=== PATIENT | male | born 1945 | race Caucasian/White ===

== ENCOUNTER 2016-03-27 13:19 | Outpatient (CLI) ==
[2013-02-23 12:55] VITALS: BMI 23.2
[2016-03-27 13:39] LABS: BASOPHILS % (AUTO) 0.6 % (0.0-3.0); EOSINOPHILS # (AUTO) 0.3 K/ul (0.0-0.7); EOSINOPHILS % (AUTO) 3.6 % (0.0-7.0); HEMATOCRIT 40.4 % (42.0-52.0); HEMOGLOBIN 13.8 g/dl (14.0-18.0); IMMATURE GRANULOCYTE % (AUTO) 0.3 % (0.0-5.0); LYMPHOCYTES # (AUTO) 2.4 K/uL (0.60-3.4); LYMPHOCYTES % (AUTO) 33.7 (10.0-50.0); MEAN CORPUSCULAR HEMOGLOBIN 31.4 pg (27.0-31.0); MEAN CORPUSCULAR HGB CONC 34.2 (31.8-35.4); MONOCYTES # (AUTO) 0.7 K/uL (0.4-2.0); MONOCYTES % (AUTO) 9.4 (0-10); NEUTROPHILS # (AUTO) 3.8 K/ul (2.0-6.9); NEUTROPHILS % (AUTO) 52.4; PLATELET COUNT 160 10^3/uL (140-440); RED BLOOD COUNT 4.39 10^6/ul (4.70-6.10); WHITE BLOOD COUNT 7.22 K/ul (4.2-10.2)
[2016-03-27 14:24] LABS: ALBUMIN 3.1 g/dL (3.4-5.0); ALBUMIN/GLOBULIN RATIO 0.79; ANION GAP 10.3; BILIRUBIN,TOTAL 1.34 mg/dL (0.00-1.20); BUN/CREATININE RATIO 15.85; CALCIUM 8.9 mg/dL (8.2-10.2); CHOL/HDL RATIO 3.3 (4.5-6.4); CREATININE 0.82 mg/dL (0.60-1.10); POTASSIUM 4.3 mmol/L (3.5-5.1)
[2016-03-29 07:51] LABS: PSA, FREE 1.04 ng/mL
== END 2016-03-27 13:20 | disposition home or self-care (01) ==
LOC: LAB 13:19
PROVIDERS: ATTEND Student in an Organized Health Care Education/Training Program
DX: I10 Essential (primary) hypertension (principal); I25.10 Atherosclerotic heart disease of native coronary artery without angina pectoris; Z86.73 Personal history of transient ischemic attack (TIA), and cerebral infarction without residual deficits; I73.9 Peripheral vascular disease, unspecified; Z85.46 Personal history of malignant neoplasm of prostate; C61 Malignant neoplasm of prostate
CPT/HCPCS: 36415; 80053; 80061; 84153; 84443; 85025

== ENCOUNTER 2016-08-02 12:29 | Outpatient (CLI) ==
[2013-02-23 12:55] VITALS: BMI 23.2
[2016-08-02 13:48] LABS: BASOPHILS % (AUTO) 0.5 % (0.0-3.0); EOSINOPHILS # (AUTO) 0.2 K/ul (0.0-0.7); EOSINOPHILS % (AUTO) 2.4 % (0.0-7.0); HEMATOCRIT 38.7 % (42.0-52.0); HEMOGLOBIN 13.2 g/dl (14.0-18.0); IMMATURE GRANULOCYTE % (AUTO) 0.1 % (0.0-5.0); LYMPHOCYTES # (AUTO) 2.3 K/uL (0.60-3.4); LYMPHOCYTES % (AUTO) 30.7 (10.0-50.0); MEAN CORPUSCULAR HEMOGLOBIN 31.1 pg (27.0-31.0); MEAN CORPUSCULAR HGB CONC 34.1 (31.8-35.4); MEAN CORPUSCULAR VOLUME 91.3 fl (80.0-94.0); MONOCYTES # (AUTO) 0.8 K/uL (0.4-2.0); MONOCYTES % (AUTO) 10.4 (0-10); NEUTROPHILS # (AUTO) 4.2 K/ul (2.0-6.9); NEUTROPHILS % (AUTO) 55.9; PLATELET COUNT 172 10^3/uL (140-440); RED BLOOD COUNT 4.24 10^6/ul (4.70-6.10); WHITE BLOOD COUNT 7.48 K/ul (4.2-10.2)
[2016-08-02 14:02] LABS: ALBUMIN 3.2 g/dL (3.4-5.0); ALBUMIN/GLOBULIN RATIO 0.86; ANION GAP 12.1; BILIRUBIN,TOTAL 1.22 mg/dL (0.00-1.20); BUN/CREATININE RATIO 7.79; CALCIUM 8.6 mg/dL (8.2-10.2); CHOL/HDL RATIO 2.4 (4.5-6.4); CREATININE 0.77 mg/dL (0.60-1.10); POTASSIUM 4.1 mmol/L (3.5-5.1); TOTAL PROTEIN 6.9 g/dL (5.8-8.1)
== END 2016-08-02 12:30 | disposition home or self-care (01) ==
LOC: LAB 12:29
PROVIDERS: ATTEND Emergency Medicine
DX: N39.3 Stress incontinence (female) (male) (principal); I10 Essential (primary) hypertension; R79.89 Other specified abnormal findings of blood chemistry; Z85.46 Personal history of malignant neoplasm of prostate; Z86.73 Personal history of transient ischemic attack (TIA), and cerebral infarction without residual deficits
CPT/HCPCS: 36415; 80053; 80061; 84443; 85025

== ENCOUNTER 2016-09-01 07:34 | Outpatient (CLI) | payer OTHER ==
[2013-02-23 12:55] VITALS: BMI 23.2
--- NOTE | 2016-09-01 08:19 | US ---
EXAM: ULTRASOUND AORTA HISTORY: Abdominal aortic aneurysm FINDINGS: Ultrasound aorta. Real time lozada-scale, color Doppler imaging and spectral analysis perf ormed. The AP and transverse measurements respectively, in centimeters are as follows: Proximal: 2.1 x 2.0 Mid: 4.0 x 4.3 Distal: 2.4 x 2.4 Right iliac: 1.2 x 1.2 Left iliac: 1.1 x 1.4 IMPRESSION: Sonographic evidence of aneurysmal caliber of the mid/infrarenal aorta measuring up to 4.3 cm. Given differences in scanning in measuring technique, this measurement appear stable since previous exam of 12/22/2014.
== END 2016-09-01 07:35 | disposition home or self-care (01) ==
LOC: RAD 07:34
PROVIDERS: ATTEND Emergency Medicine
DX: I71.4 Abdominal aortic aneurysm, without rupture (principal)
CPT/HCPCS: 76775

== ENCOUNTER 2016-09-06 06:39 | Outpatient (CLI) ==
[2013-02-23 12:55] VITALS: BMI 23.2
[2016-09-06] MEDS ORDERED: DOBUTAMINE 250 ML IV ONE (07:41)
[2016-09-06] MEDS ORDERED: ATROPINE SULFATE PFS ONE (07:41)
--- NOTE | 2016-09-06 10:20 | NM ---
EXAM: Myocardial perfusion imaging HISTORY: Shortness of breath COMPARISON: None. TECHNIQUE: The patient was injected 4 mCi of thallium 201 chloride intravenously while at rest. SPE CT imaging of the heart was acquired. The patient was stressed using dobutamine protocol and inject ed 24.9 mCi of Tc99m Sestamibi intravenously. Another SPECT imaging of the heart was acquired. Gat ed cardiac study was performed. FINDINGS: Post stress images show mildly dilated left ventricular cavity. Moderately reduced perfus ion is seen involving inferior wall. This shows reperfusion on delayed imaging consistent with reve rsible ischemia. Anterior wall, septum and lateral galdamez show normal perfusion. No fixed defect is identified. Left ventricular ejection fraction is 45%. Wall motion could not be evaluated. IMPRESSION: 1. SPECT myocardial imaging demonstrates moderate size inferior wall reversible ischemia. 2. Mildly dilated left ventricle with ejection fraction of 45%.
--- NOTE | 2016-09-07 09:37 | ECHOSTRESS ---
Date of Exam: 09/06/16 Ordering Physician: BIBIANA ROJAS Reason for Echo: CABG, SOB, CAD, PAD, DOBUTAMINE STRESS --NO ISCHEMIA M-Mode Normal Adult Results LV Dimensions Normal Adult Results AoV Opening excursions >1.6 LVEDD-base- 3.5-5.8 Ao root dimensions 2.0-3.7 LVESD-base- 3.1-4.6 L. Atrium dimensions 1.9-3.8 Post. Wall thickness 0.8-1.1 IV septum (thickness) 0.7-1.2 Post. Wall excursion 0.72-1.3 Septal motion Systolic motion R. Ventricular cavity 1.5-2.0 LVEF 60% Paradoxical septal wall motion 2-D: MILDLY HYPOKINETIC LEFT VENTRICLE AT REST AND IMPROVED LEFT VENTRICULAR CONTRACTILITY WITH DOBUTAMINE INFUSION M-MODE: MV: AV: TV: PV: CHAMBER SIZE: WALL MOTION: MILDLY HYPOKINETIC LEFT VENTRICLE AT REST AND IMPROVED LEFT VENTRICULAR CONTRACTILITY WITH DOBUTAMINE INFUSION PERICARDIUM: INTERPRETATION: 1. MILDLY HYPOKINETIC LEFT VENTRICLE AT REST AND IMPROVED LEFT VENTRICULAR CONTRACTILITY WITH DOBUTAMINE INFUSION MTDD
--- NOTE | 2016-09-07 11:14 | DOBSTECHST ---
Ordering Physician: Hayden ROJAS of Test: 09/06/16 Reason for Examination: SOB, CAD, PAD, CABG X3 Current Medications: LORAZEPAM, NORCO, LOSARTAN, LIPITOR, METOPROLOL, RANITIDINE Height: 73" Weight: 155LBS Target Heart Rate: 127/150 ST Segment Stage Time HR BPM BP/MMHG Rhythm +/- Up Down Comments/Symptoms Control Sitting 54 116/60 SR X NONE Dobutamine 250mg/D5W 5cmg/KG/mn 10cmg/KG/mn 3:00 58 SR X NONE 15cmg/KG/mn 2:00 61 126/70 SR X NONE 20cmg/KG/mn 2:00 68 138/72 SR X NONE 25cmg/KG/mn 2:00 78 SR X NONE 30cmg/KG/mn 2:00 90 SR X NONE 35cmg/KG/mn 2:00 91 138/74 SR X .25 ATROPINE 40cmg/KG/mn 1:38 118 SR X Time: 3" HR B/P Time: 6" HR B/P Time: HR B/P Recovery 96 138/64 Recovery 85 Recovery Total Time: 14:38 Maximum Heart Rate Reached: 118 __ Interpretation: 98% OXYGEN SATURATION AT REST ON ROOM AIR 1. NO EVIDENCE OF ISCHEMIA (RESTING AND WITH DOBUTAMINE 54/BPM TO 118/BPM) 2. NO CHEST PAIN OR DISCOMFORT 3. MILDLY HYPOKINETIC LEFT VENTRICLE AT REST WITH IMPROVED LEFT VENTRICULAR CONTRACTILITY WITH DOBUTAMINE INFUSION THALLIUM TO FOLLOW MTDD
== END 2016-09-06 06:40 | disposition home or self-care (01) ==
LOC: CAR 06:39
PROVIDERS: ATTEND Emergency Medicine
DX: R06.02 Shortness of breath (principal); I65.23 Occlusion and stenosis of bilateral carotid arteries

== ENCOUNTER 2016-09-19 10:19 | Emergency (ER) ==
[2016-09-19 10:25] VITALS: BP 149/78; TEMP 96.8; BMI 21.1
--- NOTE | 2016-09-19 10:44 | ED.PDOC ---
General ED Provider: Dr. YOU SEN Chief Complaint: Rash Stated Complaint: lysoll spray of face and eyes Time Seen by Physician: 10:27 (see photos) Mode of Arrival: Walk-In Information Source: Patient Exam Limitations: No limitations [facility] Nursing and Triage Documentation Reviewed and Agree: Yes EENT Complaint Exam - Eye Complaint/Exam Onset/Duration: 1 day no vision related issues Symptoms Are: Still present Timing: Constant Initial Severity: Mild Current Severity: Mild Location: Right, Left Aggravating: Reports: None Alleviating: Reports: None Associated Signs and Symptoms: Denies: Photophobia, Clear drainage, Purulent drainage, Vision impairment, Fever, Swelling Related History: Reports: Similar episode Eye Surgical History: Reports: None Penetrating Injury Risk Factors: None Globe Rupture Risk Factors: None Acute Glaucoma Risk Factors: None Optic Artery Occlusion Risk Factors: None Visual Field: Normal Extraocular Movement: Normal Orbit Findings: Normal Globe Findings: Intact Lid Findings: Normal Conjunctival Findings: Red Corneal Findings: Clear Review of Systems - Review Of Systems Constitutional: Reports: No symptoms Eyes: Reports: No symptoms Ears, Nose, Mouth, Throat: Reports: No symptoms Respiratory: Reports: No symptoms Cardiac: Reports: No symptoms GI: Reports: No symptoms : Reports: No symptoms Musculoskeletal: Reports: No symptoms Skin: Reports: No symptoms Neurological: Reports: No symptoms Endocrine: Reports: No symptoms Hematologic/Lymphatic: Reports: No symptoms All Other Systems: Reviewed and Negative Past Medical History - Past Medical History Previously Healthy: Yes Endocrine: Reports: None Cardiovascular: Reports: None Respiratory: Reports: None Hematological: Reports: None Gastrointestinal: Reports: None Genitourinary: Reports: None Neuro/Psych: Reports: None Musculoskeletal: Reports: None Cancer: Reports: None - Surgical History General Surgical History: Reports: None - Family History Family History: Reports: None - Social History Smoking Status: Current every day smoker Hx Substance Use: No Alcohol Screening: None Physical Exam - Physical Exam Appearance: Well-appearing, No pain distress, Well-nourished Eyes: BENNY, EOMI, Conjunctiva inflammed (bilateral red ) ENT: Ears normal, Nose normal, Oropharynx normal Respiratory: Airway patent, Breath sounds clear, Breath sounds equal, Respirations nonlabored Cardiovascular: RRR, Pulses normal, No rub, No murmur GI/: Soft, Nontender, No masses, Bowel sounds normal, No Organomegaly Musculoskeletal: Normal strength, ROM intact, No edema, No calf tenderness Skin: Warm, Dry (contact dermatitis rash face maculopapular ) Neurological: Sensation intact, Motor intact, Reflexes intact, Cranial nerves intact, Alert, Oriented Psychiatric: Affect appropriate, Mood appropriate Physician Notification - Case Discussed Physician Notified: karyna tracy Time of Notification: 10:47 (juan manuel pt 1:45 today) Critical Care Note - Critical Care Note Total Time (mins): 0 Course - Course Orders, Labs, Meds: Orders Category Date Time Status Dexamethasone 4 mg/ml Inj [Decadron 4 mg/ml Sdv] MEDS 09/19/16 10:41 Stat 4 mg IM ONCE STA Diphenhydramine Inj [Benadryl] MEDS 09/19/16 10:41 Stat 25 mg IM ONCE STA Medications Discontinued Medications Generic Name Dose Route Start Last Admin Trade Name Freq PRN Reason Stop Dose Admin Dexamethasone Sodium Phosphate 4 mg 09/19/16 10:41 Decadron 4 Mg/Ml Sdv IM 09/19/16 10:42 ONCE STA Diphenhydramine HCl 25 mg 09/19/16 10:41 Benadryl IM 09/19/16 10:42 ONCE STA Vital Signs: Temp Pulse Resp BP Pulse Ox 09/19/16 10:22 96.8 F L 66 20 149/78 H 98 Departure - Departure Time of Disposition: 10:44 Disposition: HOME SELF-CARE Discharge Problem: Pruritic rash Conjunctivitis Qualifiers: Conjunctivitis type: acute Acute conjunctivitis type: atopic Laterality: bilateral Qualifier Code: (H10.13) Acute atopic conjunctivitis, bilateral Contact dermatitis Qualifiers: Contact dermatitis type: allergic Contact dermatitis trigger: other chemical product Qualifier Code: (L23.5) Allergic contact dermatitis due to other chemical products Instructions: Acute Rash (ED), Conjunctivitis (ED) Condition: Good Pt referred to PMD for follow-up: Yes Additional Instructions: Please call your Family Physician as soon as possible to schedule a follow-up appointment. Prescriptions: Prednisone 40 mg PO DAILYWM #4 tablet Allergies/Adverse Reactions: Allergies propoxyphene napsylate [From Darvocet-N 100] Adverse Reaction (Verified 10:26) Home Medications: Ambulatory Orders Clopidogrel Bisulfate [Plavix] 75 mg PO MOWEFR 01/01/13 Hydrocodone/Acetaminophen [Hydrocodon-Acetaminophen 5-325] 1 each PO Q4HR PRN Prednisone 40 mg PO DAILYWM #4 tablet 09/19/16 Tamsulosin HCl [Flomax] 0.4 mg PO DAILY 09/19/16
[2016-09-19] MEDS: DECADRON 4 MG/ML SDV IM STA (10:52)
[2016-09-19] MEDS: BENADRYL IM STA (10:53)
== END 2016-09-19 11:13 | disposition home or self-care (01) ==
LOC: ED 10:19
DX: H10.13 Acute atopic conjunctivitis, bilateral (principal); L23.5 Allergic contact dermatitis due to other chemical products; F17.210 Nicotine dependence, cigarettes, uncomplicated
CPT/HCPCS: 96372; 99283

== ENCOUNTER 2016-09-22 09:07 | Outpatient (CLI) ==
[2016-09-22 12:36] LABS: BASOPHILS # (AUTO) 0.1 K/uL (0-0.2); BASOPHILS % (AUTO) 0.8 % (0.0-3.0); EOSINOPHILS # (AUTO) 0.1 K/ul (0.0-0.7); HEMATOCRIT 39.6 % (42.0-52.0); HEMOGLOBIN 13.6 g/dl (14.0-18.0); IMMATURE GRANULOCYTE % (AUTO) 0.3 % (0.0-5.0); LYMPHOCYTES # (AUTO) 1.8 K/uL (0.60-3.4); LYMPHOCYTES % (AUTO) 27.7 (10.0-50.0); MEAN CORPUSCULAR HEMOGLOBIN 31.6 pg (27.0-31.0); MEAN CORPUSCULAR HGB CONC 34.3 (31.8-35.4); MEAN CORPUSCULAR VOLUME 91.9 fl (80.0-94.0); MONOCYTES # (AUTO) 0.8 K/uL (0.4-2.0); MONOCYTES % (AUTO) 12.3 (0-10); NEUTROPHILS # (AUTO) 3.8 K/ul (2.0-6.9); NEUTROPHILS % (AUTO) 56.9; PLATELET COUNT 191 10^3/uL (140-440); RED BLOOD COUNT 4.31 10^6/ul (4.70-6.10)
[2016-09-22 13:01] LABS: ALBUMIN 3.4 g/dL (3.4-5.0); ALBUMIN/GLOBULIN RATIO 0.92; ANION GAP 15.3; BILIRUBIN,TOTAL 1.47 mg/dL (0.00-1.20); BUN/CREATININE RATIO 11.39; CALCIUM 9.4 mg/dL (8.2-10.2); CREATININE 0.79 mg/dL (0.60-1.10); POTASSIUM 4.3 mmol/L (3.5-5.1); TOTAL PROTEIN 7.1 g/dL (5.8-8.1)
== END 2016-09-22 09:08 | disposition home or self-care (01) ==
LOC: LAB 09:07
PROVIDERS: ATTEND Emergency Medicine
DX: I71.4 Abdominal aortic aneurysm, without rupture (principal); I65.23 Occlusion and stenosis of bilateral carotid arteries; R79.89 Other specified abnormal findings of blood chemistry
CPT/HCPCS: 36415; 80053; 85025

== ENCOUNTER 2017-01-31 12:47 | Outpatient (CLI) | payer OTHER ==
[2017-01-31 13:41] LABS: BASOPHILS % (AUTO) 0.5 % (0.0-3.0); EOSINOPHILS # (AUTO) 0.1 K/ul (0.0-0.7); EOSINOPHILS % (AUTO) 1.7 % (0.0-7.0); HEMOGLOBIN 13.9 g/dl (14.0-18.0); IMMATURE GRANULOCYTE % (AUTO) 0.1 % (0.0-5.0); LYMPHOCYTES # (AUTO) 2.3 K/uL (0.60-3.4); LYMPHOCYTES % (AUTO) 29.9 (10.0-50.0); MEAN CORPUSCULAR HEMOGLOBIN 31.4 pg (27.0-31.0); MEAN CORPUSCULAR HGB CONC 33.1 (31.8-35.4); MEAN CORPUSCULAR VOLUME 94.8 fl (80.0-94.0); MONOCYTES # (AUTO) 0.7 K/uL (0.4-2.0); MONOCYTES % (AUTO) 9.4 (0-10); NEUTROPHILS # (AUTO) 4.5 K/ul (2.0-6.9); NEUTROPHILS % (AUTO) 58.4; PLATELET COUNT 191 10^3/uL (140-440); RED BLOOD COUNT 4.43 10^6/ul (4.70-6.10)
[2017-01-31 14:36] LABS: ALBUMIN 3.3 g/dL (3.4-5.0); ALBUMIN/GLOBULIN RATIO 0.73; ANION GAP 13.4; BILIRUBIN,TOTAL 1.5 mg/dL (0.00-1.20); BUN/CREATININE RATIO 7.69; CALCIUM 9.4 mg/dL (8.2-10.2); CHOL/HDL RATIO 3.4 (4.5-6.4); CREATININE 0.78 mg/dL (0.60-1.10); POTASSIUM 4.4 mmol/L (3.5-5.1); TOTAL PROTEIN 7.8 g/dL (5.8-8.1)
== END 2017-01-31 12:48 | disposition home or self-care (01) ==
LOC: LAB 12:47
PROVIDERS: ATTEND Emergency Medicine
DX: I71.4 Abdominal aortic aneurysm, without rupture (principal); R79.89 Other specified abnormal findings of blood chemistry; E78.5 Hyperlipidemia, unspecified; Z85.46 Personal history of malignant neoplasm of prostate
CPT/HCPCS: 36415; 80053; 80061; 84443; 85025

== ENCOUNTER 2017-03-29 16:26 | Outpatient (CLI) | payer OTHER | END 2017-03-29 16:27 | disposition home or self-care (01) | LOC: LAB 16:26 | PROVIDERS: ATTEND Nurse Practitioner Family | DX: Z12.5 Encounter for screening for malignant neoplasm of prostate (principal) | CPT/HCPCS: 36415 ==

== ENCOUNTER 2017-05-01 10:22 | Outpatient (CLI) | payer OTHER | END 2017-05-01 10:23 | disposition home or self-care (01) | LOC: RHC-LAB 10:22 | PROVIDERS: ATTEND Emergency Medicine | DX: I65.23 Occlusion and stenosis of bilateral carotid arteries (principal); R79.89 Other specified abnormal findings of blood chemistry; I10 Essential (primary) hypertension; Z86.73 Personal history of transient ischemic attack (TIA), and cerebral infarction without residual deficits | CPT/HCPCS: 36415; 80053; 80061; 84443; 85025 ==

== ENCOUNTER 2017-08-30 16:09 | Outpatient (CLI) | payer OTHER | END 2017-08-30 16:10 | disposition home or self-care (01) | LOC: RHC-LAB 16:09 | PROVIDERS: ATTEND Emergency Medicine | DX: N30.01 Acute cystitis with hematuria (principal) | CPT/HCPCS: 81001; 87086 ==

== ENCOUNTER 2017-09-12 09:26 | Inpatient (IN) ==
[2017-09-12 10:39] VITALS: BMI 20.9
[2017-09-12] MEDS ORDERED: TYLENOL PO PRN (11:18)
[2017-09-12] MEDS ORDERED: NORCO 5-325 PO PRN (11:19)
[2017-09-12] MEDS ORDERED: PLAVIX PO SCH (11:30)
[2017-09-12] MEDS: SODIUM CHLORIDE 1,000 ML IV SCH (11:57)
--- NOTE | 2017-09-12 13:52 | DI ---
EXAM: CHEST FRONTAL VIEW HISTORY: Shortness of breath. COMPARISON: 02/23/2013 FINDINGS: Heart size within normal limits. Moderate atherosclerotic disease. Sternotomy wires. No acute infiltrates are seen. No vascular congestion. There is no consolidation, visible pleural flui d or pneumothorax. Bones reveal no acute fracture. IMPRESSION: No acute cardiopulmonary process.
[2017-09-12] MEDS ORDERED: ATIVAN PO SCH (15:00)
[2017-09-12] MEDS ORDERED: ATIVAN PO PRN (15:13)
[2017-09-12] MEDS: ZANTAC PO SCH (17:08)
--- NOTE | 2017-09-12 20:08 | DI ---
EXAM: AP single view of the pelvis. HISTORY: Fall. FINDINGS: There is a right hip arthroplasty with superior dislocation of the acetabular and femoral c omponent. There is a left hip arthroplasty which is incompletely visualized. The visualized portion of the left hip arthroplasty is intact and in adequate position. The bones are intact with no eviden ce of acute fracture. There are bilateral arterial stents. Impression: No evidence of acute fracture. Dislocation of the right hip arthroplasty as described. Left hip arthroplasty as described. Bilateral arterial stents.
--- NOTE | 2017-09-12 20:16 | CT ---
Exam: CT of the pelvis without contrast History: Fall with pelvis pain Technique: [address] bony pelvis with multiplanar reformations FINDINGS: The pelvic ring is intact. Bilateral hip arthroplasty. Right hip arthroplasty is disloca yue with cranial migration. The acetabulum appears intact. Suspected fluid collection overlying the arthroplasty site measuring about 5.8 x 3.3 cm. Possible somewhat collection on the contralateral s rocio measuring 4.5-0.5 cm. Atherosclerotic vascular calcifications are present with vascular stents i n place. No acute visceral abnormalities are seen. Impression: 1. Right arthroplasty dislocation. No gabriel-hardware fracture is seen. 2. Persistent postoperative collections between the subcutaneous fat and the proximal femur bilatera lly.
[2017-09-12] MEDS ORDERED: NICODERM 21 MG TD SCH (21:00)
[2017-09-12] MEDS ORDERED: FLOMAX PO SCH (21:00)
[2017-09-12] MEDS ORDERED: ZETIA PO SCH (21:00)
[2017-09-12] MEDS ORDERED: NON-FORMULARY MEDICATION (Ranitidine Hcl [Ranitidine Hcl] 150 MG) PO SCH (21:00)
[2017-09-13] MEDS: SODIUM CHLORIDE 1,000 ML IV SCH (04:05)
[2017-09-13] MEDS: ZANTAC PO SCH (05:41)
--- NOTE | 2017-09-13 08:14 | RS.PTINEVL ---
Subjective - Patient information Date of Evaluation: 09/12/17 Date of Arrival on Unit: 09/12/17 Admitted From:: Home Diagnosis: hypotension, SOA, Usual Living Arrangement: with daugter Living Arrangement Comments: lives with daugther Home Environment: House Medical History: Hypertension, CVA/TIA, Cancer (prostate) Medical History Comments:: AAA, B carotid art stenosis, CAD Surgical History: Hip Replacement (BTHR 2-3 weeks ago), CABG Medications: see chart Subjective Information/ Patient Comments:: pt states that he walks on his own at home. pt is alert and oriented to person only. - Level of function Abilities prior to this admission: pt poor historian. Current Level of Function: Partially Dependent Current Equipment Used at Home: none Interventions - Objective Patient Orientation: Person Current Interventions: IV's, Telemetry Observation: pt seen in bed with LE crossed. Discussed with patient THR precautions and he stated, "yeah they say that", but continued to cross legs and bend hip past 90 Range of Motion - ROM Right Upper Extremity AROM: WFL's Left Upper Extremity AROM: WFL's Right Lower Extremity AROM: Slight limitation Left Lower Extremity AROM: Slight limitation (Hip ROM limited due to surgery) Muscle Strength - Muscle Strength Right Upper Extremity Strength: Mild Weakness (grossly 4-/5) Left Upper Extremity Strength: Mild Weakness (grossly 4-/5) Right Lower Extremity Strength: Mild Weakness (hip flex 3-/5, knee flex/ext 4-/5 , ankle DF/PF 4-/5) Left Lower Extremity Strength: Mild Weakness (hip flex 3-/4, knee flex/ext 4-/5 , ankle DF/PF 1-/5) Sensation - Sensation Right Upper Extremity Sensation: Intact/Normal Left Upper Extremity Sensation: Intact/Normal Right Lower Extremity Sensation: Intact/Normal Left Lower Extremity Sensation: Intact/Normal Balance - Sitting Balance and Reactions Static Sitting Balance: Fair Dynamic Sitting Balance: Poor Sitting Equilibrium Reactions: Delayed Left, Delayed Right Sitting Protective Reactions: Delayed Left, Delayed Right - Standing Balance and Reactions Static Standing Balance: Poor Dynamic Standing Balance: Poor Standing Equilibrium Reactions: Delayed Left, Delayed Right Standing Protective Reactions: Delayed Left, Delayed Right Functional Mobility - Bed Mobility Rolling R/L: Min Assist Supine to Sit: Min Assist Sit to Supine: Min Assist, Mod Assist - Transfers Sit to Stand: Min Assist, Mod Assist - Safety Awareness Safety Awareness: Poor JERMAINE INDEX SCORE: n/a Ambulation - Ambulation Assistive Device Used: Rolling Walker Orthotic/Prosthetic Device: No Distance: 40ft Assistance needed with Ambulation: Min Assist, Mod Assist Gait Deviations: Forward posture, Short stride Ambulation Comments: pt with foot drop on LLE Factors Affecting Ambulation: Decreased Balance, Weakness, Decreased Coordination, Decreased Safety, Cognitive Status, Limited Endurance Treatment time - Time with patient Length of Evaluation: 21 Total treatment time: 26 Patient Education - Education Patient Education: Education of Plan of Care Teaching Recipient: Patient Teaching Methods: Discussion Comments: discussion with patient regarding calling for help to assist out of chair Assessment - Assessment Problem List:: Decreased level of function, Requires training/education, Decreased safety/Risk of falls, Weakness, Cognitive status limits abilities Rehab Potential: Fair Further Therapy Indicated?: Yes Candidate for Swing Bed for Therapy Services?: will reeval to see if pt cooperative with PT Evaluation Complexity: HISTORY: Medium (CAD, BTHR, CVA), EXAM OF BODY SYSTEMS: Medium (strength, ROM, balance, gait ), CLINICAL PRESENTATION: Medium (evolving) , CLINICAL DECISION MAKING: Medium Short Term Goals GOAL #1: pt demonstrate independence with rolling and scooting up in bed Goal to be met by: 09/14/17 GOAL #2: pt transfer sup to/from sit CGA, sit to/from stand min to CGA Goal to be met by: 09/14/17 GOAL #3: pt amb 75ft w rwx with min x 1 with improved sequencing and posture Goal to be met by: 09/14/17 GOAL #4: Able to sit at side of bed and reach away from midline no LOB Goal to be met by: 09/14/17 Take Away Attendant Goals GOAL #1: pt transfer sup to/from sit to/from stand SBA Goal to be met by: 09/18/17 GOAL #2: pt amb functional household distance w rwx with CGA with no LOB Goal to be met by: 09/18/17 GOAL #3: pt demonstrate ability to perform standing activities x 5 mins Goal to be met by: 09/18/17 Plan Plan of Care: Therapeutic EX, Therapeutic Activity Other:: gait training, educate on THR precautions Frequency of Treatment: 1-2 X day, as tolerated Duration of Treatment: 6 days Anticipated Discharge Destination: Home Treatment Diagnosis (ICD 10 Codes): R 26.2 difficulty walking. M62.81 general weakness. aftercare following B THR precautions Has the Physician been added for Co-signature?: Yes
[2017-09-13] MEDS ORDERED: COLACE PO SCH (09:00)
[2017-09-13] MEDS ORDERED: PROSCAR PO SCH (09:00)
[2017-09-13 09:47] VITALS: BP 174/92; TEMP 98
[2017-09-13] MEDS ORDERED: DEMEROL 100 MG/ML SYRINGE IVP STA (09:58)
[2017-09-13] MEDS ORDERED: DEMEROL 25 MG/ML VIAL IVP STA (10:01)
[2017-09-13] MEDS ORDERED: DEMEROL 25 MG/ML VIAL ONE (10:01)
--- NOTE | 2017-09-13 10:34 | PN ---
DATE OF SERVICE: 09/12/17 SUBJECTIVE: Nurse Radha called me saying that patient went to the bathroom and was trying to turn. He almost fell down. The patient slid down and landed on the floor. After getting up the patient was having the right hip pain. Order the x-rays and the x -rays showed cranial displacement of the right hip so the patient was put on the strict bedrest at that time order was given. TIME SPENT: More than 35 minutes MTDD
--- NOTE | 2017-09-13 10:42 | PN ---
DATE OF SERVICE: 09/13/17 SUBJECTIVE: The patient complains about the right hip pain. We can see the abnormality, the leg is rotated and the patient is upset that he had problem with the right hip again as the patient had a bilateral hip replacement recently. REVIEW OF SYSTEMS: CONSTITUTIONAL: No fever, no chills. HEENT: Normal. ENDOCRINE: No weight gain, no weight loss. CVS: No angina symptoms. No CHF symptoms. No palpitations. No atypical chest pain for CAD. No shortness of breath. No PND, no orthopnea. RESPIRATORY: No cough, no hemoptysis. GI: No nausea, no vomiting. No abdominal pain. : No hematuria. No polyuria. MUSCULOSKELETAL: No joint swelling. PSYCHIATRIC: Not anxious. No depression. No suicidal thoughts. No homicidal thoughts. SKIN: Intact. No rash. PHYSICAL EXAMINATION: V/S: Blood pressure 164/85, respiratory rate 20, heart rate 99, temperature 97.9 with saturation 98%. HEENT: Normocephalic, atraumatic. Mucosa dry. Pallor positive. No icterus. NECK: Supple. No JVD, no carotid bruit. No lymphadenopathy. LUNGS: Clear to auscultation. No rales or rhonchi. HEART: S1, S2 normal. No S3. No murmur, gallop or regurgitation. ABDOMEN: Soft, nontender. Bowel sounds active. No rigidity. No rebound or guarding. No CVA tenderness. EXTREMITIES: No cyanosis, clubbing or pedal edema. Left hip surgical site healthy range of motion it is slightly restricted but within normal range. Right hip tenderness on the hip and we can see the fullness in that area. No drainage or not redness. Femoral pulses are found but not strong. MUSCULOSKELETAL: No joint swelling. NEUROLOGIC: Awake, alert. No focal deficit. LYMPHATIC: No lymph nodes palpable. SKIN: Intact. LABS: Sodium 129, potassium 3.7, chloride 96, bicarb 23, BUN 8, creatinine 0.68, glucose 143, WBC 9.78, hgb 10.3, hct 32.4, plt count 266. ASSESSMENT: 1. Status post fall with the right hip cranial dislocation per x-ray and intact acetabulum. 2. Recent Status post right hip replacement at [facility] by Dr. Nagel 3. Status post left hip replacement 4. CAD 5. Severe peripheral vascular disease with stents 6. Continued Nicotine use 7. Bypass surgery in 2010 8. History of stroke with left foot drop 9. Appendectomy PLAN: 1. Talked to the Dr. Fischer who is covering Dr. Nagel accepting patient for the procedure at the [facility]. We will be calling the hospitalist group to help with this transfer. TIME SPENT: More than 35 minutes MTDD
--- NOTE | 2017-09-13 10:57 | HP ---
DATE OF SERVICE: 09/12/17 HISTORY OF PRESENT ILLNESS: This is a 72-year-old white/ male who presented to the office for weakness, leg edema and low blood pressure. The patient had bilateral hip replacements 2-3 weeks ago. He was doing PT at home, Home Health care found swollen legs and more shortness of breath. Sent him for evaluation. BP has been low, has some dizziness when stands up. is in the room. The patient was admitted from the office as the patient was feeling weak, tired and blood pressure systolic 86. In view of dehydration, the patient was admitted to the hospital and started on IV fluids. I went back to the hospital and examined the patient. He can bend both hips and surgical site at the hips are both looking healthy. The patient has been walking with walker. Advised to continue at this time. PT/OT will be coming in to evaluate the patient. REVIEW OF SYSTEMS: CONSTITUTIONAL: Fatigue. No fever, no chills. HEENT: Normal. ENDOCRINE: Weight loss. CVS: Peripheral edema. No chest pain. No PND, no orthopnea. Shortness of breath. No PND, no orthopnea. RESPIRATORY: No cough, no congestion. No hemoptysis. GI: No nausea, no vomiting. No abdominal pain. No melena. : No hematuria. No polyuria. MUSCULOSKELETAL: Back pain, joint pain. NEUROLOGIC: Complains of abnormal gait. PSYCHIATRIC: Not anxious. No depression. No suicidal thoughts. No homicidal thoughts. SKIN: Intact, no open lesions. PAST MEDICAL HISTORY: Cerebrovascular accident Dyslipidemia Gastroesophageal reflux disease Hypertension Peripheral vascular disease PAST SURGICAL HISTORY: Appendectomy Coronary artery bypass graft Coronary stent 2014 Stent each leg 2014 PERSONAL HISTORY: Patient refuses to answer. FAMILY HISTORY: Cardiac disease; father age 69, cause OK. MEDICATIONS: (Home) Buspirone 10 mg p.o. b.i.d. Buproprion (Wellbutrin XL) 150 mg p.o. daily Metoprolol Tartrate 25 mg p.o. b.i.d. Lorazepam 0.5 mg p.o. t.i.d. Clopidogrel (Plavix) 75 mg p.o. daily Atorvastatin (Lipitor) 80 mg p.o. daily Ezetimibe 10 mg p.o. bedtime Hydrocodone/Acetaminophen one each p.o. q.4h p.r.n. Tamsulosin (Flomax) 0.4 mg cap ER 24 hr p.o. daily Ranitidine 150 mg p.o. b.i.d. p.r.n. Urecholine 25 mg p.o. t.i.d. Finasteride 5 mg p.o. daily Colace 100 mg p.o. daily ALLERGIES: PROPOXYPHENE NAPSYLATE (FROM DARVOCET-N 100) (UNVERIFIED ADVERSE REACTION 09/19/16) PHYSICAL EXAMINATION: V/S: Temperature 97.8, pulse 58, BP 88/50, respiratory rate 16. GENERAL: Sick looking male, thin built in no distress. HEENT: Atraumatic, normocephalic. No scleral icterus. Mucosa dry. NECK: Supple. No JVD, no bruit. No lymphadenopathy. No thyromegaly. HEART: S1, S2 normal. No murmur. No cyanosis or clubbing. No ascites. LUNGS: Clear to auscultation. No rales or rhonchi. ABDOMEN: Soft, nontender. Bowel sounds are active. No CVA tenderness. No rigidity or guarding. EXTREMITIES: No pedal edema. No cyanosis or clubbing MUSCULOSKELETAL: Normal joints, no swelling. NEUROLOGIC: The patient is awake, alert, oriented times three. Ambulating without difficulty. SKIN: Intact; no open lesions. LYMPHATIC: No lymph nodes palpable. LABS: WBC 6.81, RBC 3.24, Hgb 10.0, HCT 30.8, platelet 234. Sodium 133, potassium 4.2 , chloride 99, carbon dioxide 26, BUN 9, creatinine 0.71, glucose 104, calcium 8.9, bilirubin 1.1, AST 17, ALT 19, alkaline phosphatase 118. ASSESSMENT/PLAN: 1. ABDOMINAL AORTIC ANEURSYM WITHOUT RUPTURE 2. HISTORY OF PROSTATE CANCER 3. HISTORY OF STROKE 4. STRESS INCONTINENCE 5. BILATERAL CAROTID ARTERY STENOSIS 6. SHORTNESS OF BREATH 7. CORONARY ARTERY DISEASE OF BYPASS GRAFT OF [place] HEART WITH STABLE ANGINA PECTORIS 8. LEG EDEMA 9. H/O BILATERAL HIP REPLACEMENTS 10. OTHER IRON DEFICIENCY ANEMIA TIME SPENT: MORE THAN 70 minutes MTDD
--- NOTE | 2017-09-13 17:18 | PCM.HOSP ---
- Initial Hospital Care [id number] 70 Minutes Bedside ([id number]): 09/12 - Hospital Discharge [id number] More than 30 Minutes ([id number]): 09/13
--- NOTE | 2017-09-14 10:59 | DS ---
DATE OF SERVICE: 09/13/17 FINAL DIAGNOSIS: 1. Right prosthetic hip displacement, cranially 2. Left sided status post hip replacement 3. Right sided status post hip replacement in August 4. Recurrent falls 5. COPD 6. Anemia 7. Hypertension 8. CAD 9. Bypass surgery, complete ablation on the right 10.Inter carotid artery 2016, mild to moderate occlusion left Inter carotid artery 11.Abdominal aortic aneurysm 12.Peripheral vascular disease with stents put in DISCHARGE INSTRUCTIONS: Discharge the patient to the [facility] for right hip repair. MEDICATIONS AT DISCHARGE: Hydrocodone Zantac Lorazepam Colace Demerol Flomax Macro NicoDerm Plavix Finasteride DIET INSTRUCTIONS: Cardiac and healthy NPO at this time ACTIVITY: Bed rest DISEASE SPECIFIC EDUCATION: Fall precautions Fracture HOSPITAL COURSE: Jagdish Persaud who is a 72 year old male who recently had a bilateral hip replacement done in the [facility] in August 2017. Ever since the patient has been declined in function. Came to the office for the followup and his blood pressure was 86/44 and short of breath. At that time the patient was admitted to the hospital, held all the blood pressure medications. Started on IV fluids. Chest x-ray was negative. BNP was negative. The patient tried to walk and went to the bathroom and he slipped and fell. The nurse says that he was not able to walk and complaining of more pain in the right hip. X-ray was done which showed the cranial migration of the prosthetic right hip on the right side. At that time the patient was put on the bedrest, it happened yesterday evening and today we called the orthopedic surgeon in [place] and did transfer the patient to the [facility] for the repair and treatment. TIME SPENT: MORE THAN 65 MINUTES MTDD
== END 2017-09-13 10:25 | disposition home or self-care (01) | DRG 948 ==
LOC: MEDSURG A 09:26
PROVIDERS: ADMIT Emergency Medicine; ATTEND Emergency Medicine
DX: R53.1 Weakness (principal); T84.021A Dislocation of internal left hip prosthesis, initial encounter; R60.0 Localized edema; J44.9 Chronic obstructive pulmonary disease, unspecified; D64.9 Anemia, unspecified; I10 Essential (primary) hypertension; I25.10 Atherosclerotic heart disease of native coronary artery without angina pectoris; I71.4 Abdominal aortic aneurysm, without rupture; I65.23 Occlusion and stenosis of bilateral carotid arteries; N39.3 Stress incontinence (female) (male); M25.551 Pain in right hip; W19.XXXA Unspecified fall, initial encounter; Y92.230 Patient room in hospital as the place of occurrence of the external cause; Z96.643 Presence of artificial hip joint, bilateral
CPT/HCPCS: 36415; 80053; 81001; 82550; 82553; 83880; 84484; 85025; 87081; 87086; 87186; 93005; 93010

== ENCOUNTER 2017-09-13 10:37 | Outpatient (CLI) ==
[2017-09-12 10:39] VITALS: BMI 20.9
== END 2017-09-13 11:02 | disposition short-term general hospital (02) ==
LOC: AMBL 10:37
PROVIDERS: ATTEND Internal Medicine
DX: S73.004A Unspecified dislocation of right hip, initial encounter (principal); W18.30XA Fall on same level, unspecified, initial encounter; Y92.230 Patient room in hospital as the place of occurrence of the external cause; R06.02 Shortness of breath; R60.0 Localized edema; I95.9 Hypotension, unspecified

== ENCOUNTER 2017-09-28 07:15 | Outpatient (CLI) | END 2017-09-28 07:40 | disposition short-term general hospital (02) | LOC: AMBL 07:15 | PROVIDERS: ATTEND Internal Medicine | DX: M25.551 Pain in right hip (principal); M25.552 Pain in left hip; C18.9 Malignant neoplasm of colon, unspecified; C61 Malignant neoplasm of prostate; Z74.01 Bed confinement status; R40.2411 Glasgow coma scale score 13-15, in the field [EMT or ambulance] ==

== ENCOUNTER 2017-10-01 05:10 | Outpatient (CLI) | END 2017-10-01 05:11 | disposition home or self-care (01) | LOC: AMBL 05:10 | PROVIDERS: ATTEND Family Medicine | DX: S73.004A Unspecified dislocation of right hip, initial encounter (principal); M25.551 Pain in right hip ==

== ENCOUNTER 2017-12-11 13:00 | Outpatient (RCR) ==
--- NOTE | 2017-12-04 10:02 | RS.OPPTEV2 ---
Date of Note: 12/03/17 Visit #: 1 Number of visits approved by Insurance: n/a Date of Evaluation: 12/03/17 Payer Source: MEDICARE Surgery Performed?: No Treatment Diagnosis: gait disturbance, LE weakness, at risk of falls History of Condition/Mechanism of Injury:: pt with hx of R THR 09/29/17 and subsequent dislocation and underwent revision. pt [facility] and [facility] dc him last week. pt continues to require assist with all transfers and amb. Level of Function: pt requires assist with all ADL's, is able to feed self. pt unable to transfer or amb without assist. pt lives with with 3 steps to enter without handrail Functional Limitations: Self Care, ADL's, Reaching, Standing, Squatting, Ambulation, Community Access/Integration Current Subjective/complaints:: pt states his legs hurt. reports she is having difficulty with his transfers and assisting him with amb, states pt pushes backward. verbalized tension with her and her children regarding care of her . Treatment Side (optional): Bilateral *Precautions: fall precautions Medical History Medical History: Hypertension, CVA/TIA, Arthritis, Cancer (prostate) Medical History Comments:: AAA, B carotid art stenosis, CAD, GERD, PVD, Surgical History: Hip Replacement (R THR, L hip sx), CABG Surgical History Comments:: stent in BLE, coronary stent, Smoking Status: Current every day smoker Hx Home Medications: atorvastatin, urecholine, clopidogrel, docusate, ezetimibe , famotidine, finasteride, lorazepam, metoprolol, multivitamin, nicotine CQ, oxycodone-acetaminophen, sulfametoxazole-trimethoprim, tamsulosin Patient's Goals: be able to walk Pain Assessment - Pain Description Pain Location: BLE Pain Description: Aching Current Pain Intensity: pt refuses to rate Functional Outcome Measure Tinetti: 3 (90%) - G Codes & Severity Modifier G Codes & Modifier: mobility: walking and moving around current CM. mobility: walking and moving around goal CL Source of G Code score: tinetti score Observation - Observation Inspection: Tone noted in LLE noted with DF Posture: Forward Head, Rounded Shoulders, Increased Thoracic Kyphosis, Decreased Lumbar Lordosis Handedness: Right Gait - Gait Pattern General Gait Pattern Observation: Ataxic Gait, Hips Posterior to JULIANA, Decrease Stride Lngth (R), Decrease Stride Lngth (L) Gait Comments: pt amb 20ft x 2 with rwx with min to mod x 2. pt amb with posterior lean with foot drop on LLE, pt also requires assist with guiding rwx. General Range of Motion: BUE WFL's. RLE WFL's, LLE decreased ankle DF due to foot drop which has been present since CVA 2009. Muscle Strength: BUE 4+/5. RLE hip flex 4/5, knee flex/ext 4/5, ankle DF/PF 4/ 5. LLE hip flex 4-/5, knee flex/ext 4-/5, ankle DF 0/5, PF 3+/5 Palpation Palpation Findings: None/Normal Sensation - Sensation Right Upper Extremity: Intact/Normal Left Upper Extremity: Intact/Normal Right Lower Extremity: Intact/Normal Left Lower Extremity: Intact/Normal Balance - Sitting Balance Static Sitting Balance: Fair Dynamic Sitting Balance: Fair - Standing Balance Static Standing Balance: Poor Dynamic Standing Balance: Poor - Comments Balance Assessment Comments: Tinetti balance score 05/09 Interventions - Exercise/Activities/Manual Therapy Exercises/Activities: pt received heel cord stretch, performed QS, isometric hip add, resisted hip abd with red tband, LAQ, seated hip flex x 5-10 reps Manual Therapy: n/a HOME EXERCISE PROGRAM: pt given written HEP including: heel cord stretch ( instructed ), QS, isometric hip add, resisted hip abd, LAQ, seated hip flex - Charges Timed Code Treatment Minutes: 54 Total Treatment Time: 62 Procedures billed for this date of service:: eval med, ex EVALUATION COMPLEXITY LEVEL EVALUATION COMPLEXITY LEVEL: HISTORY: Medium (CVA, HTN, CA, s/p THR , cognitive deficits), EXAM OF BODY SYSTEMS: Medium (pain, ROM, strength, balance, gait, transfers), CLINICAL PRESENTATION: Medium (evolving), CLINICAL DECISION MAKING: Medium Assessment Assessment: pt presents with decreased strength, balance as well as gait and transfers safety. pt is limited due to cognitive deficits Patient Education: Home Exercise Program, Education of Plan of Care Rehab Potential: Good Short Term Goals Goal #1: pt transfer sup to/from sit SBA, sit to/from stand CGA Goal to be met by: 12/24/17 Goal #2: pt amb in dept with rwx with min to CGA x 1 with improved posture Goal to be met by: 12/24/17 Goal #3: Improved dyn stand balance as noted by tinetti score 12/09. Goal to be met by: 12/24/17 Goal #4: pt and independent with initial HEP Goal to be met by: 12/24/17 Cleaner Operator Goals Goal #1: pt amb functional household distances with CGA to SBA with RWX Goal to be met by: 01/14/18 Goal #2: Improved dyn stand balance as noted by tinetti score Goal to be met by: 01/14/18 Goal #3: pt improved gait speed to 0.2-0.4 to be consistent with household ambulator Goal to be met by: 01/14/18 Goal #4: report no falls at home w improved ability to participate in selfcare Goal to be met by: 01/14/18 Plan - Treatment to be Provided Procedures: Therapeutic Exercises, Therapeutic Activity, Gait Training, Neuromuscular Rehab, Patient Education Modalities: No Modalities - Treatment Plan Frequency: 2-3x a week Duration: 6 weeks Dates of Shelter Goals: 01/14/18 Expiration date of current Insurance Approval:: pending approval - Treatment Code (1) Gait disturbance Code(s): R26.9 - UNSPECIFIED ABNORMALITIES OF GAIT AND MOBILITY (2) Muscle weakness Code(s): M62.81 - MUSCLE WEAKNESS (GENERALIZED) (3) At risk for falls Code(s): Z91.81 - HISTORY OF FALLING
--- NOTE | 2017-12-05 14:22 | RS.OPPTDN ---
Subjective Date of Note: 12/05/17 Visit #: 2 Number of visits approved by Insurance: NA Date of Evaluation: 12/03/17 Payer Source: MEDICARE Treatment Diagnosis: gait disturbance, LE weakness, at risk of falls Current Subjective/complaints:: Patient reports no pain today.He has minimal conservation ,unless asked a question. *Precautions: fall precautions Interventions - Exercise/Activities/Manual Therapy Exercises/Activities: 45 mins. total of ther act.,ex ,gait with mod assist of 1 .He ambulates ~ 200 ' today with rolling walker.Seated exercises 3/15 of alternating hip flexion,LAQ's.Passive heelcord stretch on L with prolonged overpressure.Transfer training from w/c to auto at end of session. Total minutes of Exercise: 45 Manual Therapy: n/a Total minutes of Manual Therapy: 0 HOME EXERCISE PROGRAM: pt given written HEP including: heel cord stretch ( instructed ), QS, isometric hip add, resisted hip abd, LAQ, seated hip flex - Charges Timed Code Treatment Minutes: 45 Total Treatment Time: 55 Procedures billed for this date of service:: ther. act. ,ex,gait Assessment: Patient has difficulty with alternating LE exercises ,and the residual tone in the L LE increases as the AROM continues.He does have L heelcord tightness ,which lessens with prolonged static stretches.He requires cues for safe transfers and cues for posture when he fatigues.The L foot drop increases as the fatigue occurs when walking ,dragging the L foot when advancing it.He does have less posterior loss of balance with standing ,as compared to when he was evaluated. Patient Education: Education of diagnosis, Body/Joint mechanics, Home Exercise Program, Home Safety, Activity Modification, Education of Plan of Care Short Term Goals Goal #1: pt transfer sup to/from sit SBA, sit to/from stand CGA Goal to be met by: 12/24/17 Progress towards Goal:: Progressing Goal #2: pt amb in dept with rwx with min to CGA x 1 with improved posture Goal to be met by: 12/24/17 Progress towards Goal:: Progressing Goal #3: Improved dyn stand balance as noted by tinetti score 12/09. Goal to be met by: 12/24/17 Goal #4: pt and independent with initial HEP Goal to be met by: 12/24/17 Reel Hooker Goals Goal #1: pt amb functional household distances with CGA to SBA with RWX Goal to be met by: 01/14/18 Goal #2: Improved dyn stand balance as noted by tinetti score Goal to be met by: 01/14/18 Goal #3: pt improved gait speed to 0.2-0.4 to be consistent with household ambulator Goal to be met by: 01/14/18 Goal #4: report no falls at home w improved ability to participate in selfcare Goal to be met by: 01/14/18 Plan Dates of Usp Goals: 01/14/18 Expiration date of current Insurance Approval:: 01/14/18 PLAN: Cont. PT to improve balance/strength for safer ADL's.
--- NOTE | 2017-12-07 14:32 | RS.OPPTDN ---
Subjective Date of Note: 12/07/17 Visit #: 3 Number of visits approved by Insurance: NA Date of Evaluation: 12/03/17 Payer Source: MEDICARE Treatment Diagnosis: gait disturbance, LE weakness, at risk of falls Current Subjective/complaints:: No c/o. *Precautions: fall precautions Pain Assessment - Pain Description Pain Location: LE's Pain Description: soreness in LE's Interventions - Exercise/Activities/Manual Therapy Exercises/Activities: 50 mins. total of ther act.,ex ,gait with mod assist of 1 .He ambulates ~ 80' x 3 ' today with rolling walker.Seated exercises 3/15 of alternating hip flexion,LAQ's.Passive heelcord stretch on L with prolonged overpressure.Added stretches to L hip addductors to widened the JULIANA when standing.Transfer training from w/c to auto at end of session. Total minutes of Exercise: 50 Manual Therapy: n/a Total minutes of Manual Therapy: 0 HOME EXERCISE PROGRAM: pt given written HEP including: heel cord stretch ( instructed ), QS, isometric hip add, resisted hip abd, LAQ, seated hip flex - Charges Timed Code Treatment Minutes: 50 Total Treatment Time: 50 Procedures billed for this date of service:: TA,gt,ex Assessment: Patient can benefit from AFO on the L ,has increased foot drop as the gait progresses,also has extensor tone ,causing the ankle to plantar flex.He requires cues for safe transfers ,and hand placement. Patient Education: Education of diagnosis, Body/Joint mechanics, Home Exercise Program, Home Safety, Activity Modification, Education of Plan of Care Patient demonstrates compliance with HEP?: Yes Short Term Goals Goal #1: pt transfer sup to/from sit SBA, sit to/from stand CGA Goal to be met by: 12/24/17 Progress towards Goal:: Progressing Goal #2: pt amb in dept with rwx with min to CGA x 1 with improved posture Goal to be met by: 12/24/17 Progress towards Goal:: Progressing Goal #3: Improved dyn stand balance as noted by tinetti score 12/09. Goal to be met by: 12/24/17 Goal #4: pt and independent with initial HEP Goal to be met by: 12/24/17 Alf Goals Goal #1: pt amb functional household distances with CGA to SBA with RWX Goal to be met by: 01/14/18 Progress towards goal: Progressing Goal #2: Improved dyn stand balance as noted by tinetti score Goal to be met by: 01/14/18 Goal #3: pt improved gait speed to 0.2-0.4 to be consistent with household ambulator Goal to be met by: 01/14/18 Goal #4: report no falls at home w improved ability to participate in selfcare Goal to be met by: 01/14/18 Plan Dates of Alf Goals: 01/14/18 Expiration date of current Insurance Approval:: NA PLAN: Cont . PT to decrease tonne and increasestrength in the L LE/trunk for safer transfers and gait.
--- NOTE | 2017-12-11 14:19 | RS.OPPTDN ---
Subjective Date of Note: 12/11/17 Visit #: 4 Number of visits approved by Insurance: N/A Date of Evaluation: 12/03/17 Payer Source: MEDICARE Treatment Diagnosis: gait disturbance, LE weakness, at risk of falls Current Subjective/complaints:: Patient reports muscle soreness in legs ,but no pain present. *Precautions: fall precautions Pain Assessment - Pain Description Pain Location: LE's Other Comments regarding Pain:: soreness only Interventions - Exercise/Activities/Manual Therapy Exercises/Activities: 35 mins. total of ther act.,ex ,gait with mod assist of 1 .He ambulates 15' at a time today,allowed passive stretches ,then requests to stop therapy. Total minutes of Exercise: 35 Manual Therapy: n/a Total minutes of Manual Therapy: 0 HOME EXERCISE PROGRAM: pt given written HEP including: heel cord stretch ( instructed ), QS, isometric hip add, resisted hip abd, LAQ, seated hip flex - Charges Timed Code Treatment Minutes: 35 Total Treatment Time: 50 Procedures billed for this date of service:: Ther. Act. 2 Assessment: Lengthy discussion with patient and his ,but he is adamant about stopping PT,is satisfied to be able to transfer and use the W/C as primary mode of transportation .The reports at home he will not cooperate, yells at her and is angry , only wants to sit in chair for the majority of the day and watch DVD's.We discussed the D/C plan today due to lack of motivation. has contacted community services for additional help at home, possible ramp for easier entry to home. Patient Education: Education of Plan of Care Patient demonstrates compliance with HEP?: No Short Term Goals Goal #1: pt transfer sup to/from sit SBA, sit to/from stand CGA Goal to be met by: 12/24/17 Progress towards Goal:: Progressing Goal #2: pt amb in dept with rwx with min to CGA x 1 with improved posture Goal to be met by: 12/24/17 Progress towards Goal:: Progressing Goal #3: Improved dyn stand balance as noted by tinetti score 12/09. Goal to be met by: 12/24/17 Goal #4: pt and independent with initial HEP Goal to be met by: 12/24/17 Fdc Goals Goal #1: pt amb functional household distances with CGA to SBA with RWX Goal to be met by: 01/14/18 Progress towards goal: Progressing Goal #2: Improved dyn stand balance as noted by tinetti score Goal to be met by: 01/14/18 Goal #3: pt improved gait speed to 0.2-0.4 to be consistent with household ambulator Goal to be met by: 01/14/18 Goal #4: report no falls at home w improved ability to participate in selfcare Goal to be met by: 01/14/18 Plan Dates of Loans Officer Goals: 01/14/18 Expiration date of current Insurance Approval:: 01/14/18 PLAN: D/C
--- NOTE | 2017-12-11 16:15 | RS.OPPTDC ---
Date of Discharge: 12/11/17 Date of Evaluation: 12/03/17 Number of Visits: 4 Treatment Diagnosis: gait disturbance, LE weakness, at risk of falls Current Level of Function: pt is at the same level as eval. pt amb with rwx with min x 1, only amb 15ft before requiring rest period. pt continues with foot drop on LLE. Current Complaints/Gains: pt reports that he wants to stop therapy. reports that he becomes angry at home when she tries to encourage him to participate with HEP and gait. She states he sits in w/c most of the day everyday. pt states that he does not want to do any therapy. Functional Outcome Measure - G Codes & Severity Modifier G Codes & Modifier: mobility goal CL. mobility DC CM Source of G Code score: Tinetti balance score, same as eval Observation - Observation Posture: Forward Head, Rounded Shoulders, Increased Thoracic Kyphosis, Decreased Lumbar Lordosis Handedness: Right Gait - Gait Pattern General Gait Pattern Observation: Ataxic Gait, Crouched Gait, Decrease Stride Lngth (R), Decrease Stride Lngth (L) Gait Comments: pt with foot drop on LLE Interventions - Exercise/Activities/Manual Therapy Exercises/Activities: n/a Manual Therapy: n/a HOME EXERCISE PROGRAM: pt given written HEP including: heel cord stretch ( instructed ), QS, isometric hip add, resisted hip abd, LAQ, seated hip flex - Charges Timed Code Treatment Minutes: n/a Total Treatment Time: n/a Procedures billed for this date of service:: n/a Assessment Assessment: pt is not motivated to participate in therapy. pt refuses to participate with PT and do HEP at home or amb with . Patient Education: Home Exercise Program, Education of Plan of Care Rehab Potential: Poor (due to pt does not want to participate.) Short Term Goals Goal #1: pt transfer sup to/from sit SBA, sit to/from stand CGA Goal to be met by: 12/24/17 Progress towards Goal:: Not Met Goal #2: pt amb in dept with rwx with min to CGA x 1 with improved posture Goal to be met by: 12/24/17 Progress towards Goal:: Not Met Goal #3: Improved dyn stand balance as noted by tinetti score 12/09. Goal to be met by: 12/24/17 Progress towards Goal:: Not Met Goal #4: pt and independent with initial HEP Goal to be met by: 12/24/17 Progress towards Goal:: Not Met Anesthesia Tech Goals Goal #1: pt amb functional household distances with CGA to SBA with RWX Goal to be met by: 01/14/18 Progress towards goal: Not Met Goal #2: Improved dyn stand balance as noted by tinetti score Goal to be met by: 01/14/18 Progress towards goal: Not Met Goal #3: pt improved gait speed to 0.2-0.4 to be consistent with household ambulator Goal to be met by: 01/14/18 Progress towards goal: Not Met Goal #4: report no falls at home w improved ability to participate in selfcare Goal to be met by: 01/14/18 Plan Reason for Discharge:: pt wants to be dc from therapy
== END 2017-12-12 23:59 ==
PROVIDERS: ATTEND Nurse Practitioner Family
DX: R26.9 Unspecified abnormalities of gait and mobility (principal); R29.898 Other symptoms and signs involving the musculoskeletal system; Z91.81 History of falling; M62.81 Muscle weakness (generalized)

== ENCOUNTER 2018-05-29 10:40 | Outpatient (CLI) | payer OTHER ==
[2018-01-07 09:53] VITALS: BMI 26.2
== END 2018-05-29 10:41 | disposition home or self-care (01) ==
LOC: RHC-LAB 10:40 → FCC-LAB 10:41
PROVIDERS: ATTEND Family Medicine
DX: D64.9 Anemia, unspecified (principal); E87.1 Hypo-osmolality and hyponatremia; R73.09 Other abnormal glucose; Z51.81 Encounter for therapeutic drug level monitoring; Z79.899 Other long term (current) drug therapy
CPT/HCPCS: 36415; 80053; 83037; 85025

== ENCOUNTER 2018-07-04 10:51 | Outpatient (CLI) ==
[2018-01-07 09:53] VITALS: BMI 26.2
== END 2018-07-04 10:52 | disposition home or self-care (01) ==
LOC: RHC-LAB 10:51 → FCC-LAB 10:52
PROVIDERS: ATTEND Family Medicine
DX: Z76.5 Malingerer [conscious simulation] (principal)

== ENCOUNTER 2018-07-12 12:32 | Emergency (ER) ==
[2018-07-12 12:44] VITALS: BP 109/52; TEMP 96.5; BMI 20.7
--- NOTE | 2018-07-12 13:01 | ED.PDOC ---
General ED Provider: Dr. MILDRED TORRES Chief Complaint: Fall Stated Complaint: 73 y ol;d male with prostate Ca on tamoxifen,PMHx of CVA and ACS.On Plavix,BP meds and statin.Fel today once with walker and than was weak, Right arm does not move in tandem with normal left.That could be a result of shoulder Fx from fall or food service aide problem.CT head and shoulder x ray is needed,Both lower [id number] good astrenghth and rom.WeakAppeares wasted,Fracture closed r humeral neckNot dislocated. in displ. Time Seen by Physician: 12:45 Mode of Arrival: Wheelchair Information Source: Patient, Family Exam Limitations: No limitations Primary Care Provider: JUDSON ORNELAS Nursing and Triage Documentation Reviewed and Agree: Yes Does patient meet sepsis criteria?: No System Inflammatory Response Syndrome: Not Applicable Sepsis Protocol: For patient's 13 years and over: Temp is 96.8 and below OR 101 and greater Pulse >90 BPM Resp >20/minute Acutely Altered Mental Status Are patient's symptoms suggestive of a new infection, such as: -Pneumonia -Skin, Soft Tissue -Endocarditis -UTI -Bone, Joint Infection -Implantable Device -Acute Abdominal Infection -Wound Infection -Meningitis -Blood Stream Catheter Infection -Unknown Cardiovascular Complaint Exam - Chest Pain Complaint/Exam Duration: chronic Symptoms Are: Still present Timing: Intermittent Length of Chest Pain Episodes: one day Initial Severity: Mild Current Severity: Mild Location: Reports: Diffuse Pain Radiates: Reports: Other Character: Reports: Dull Aggravating: Reports: Exertion Alleviating: Reports: Rest Associated Signs and Symptoms: Reports: Short of air Related History: Reports: Similar episode Related Surgical History: Reports: None History of Healthcare-Acquired Pneumonia: Reports: No AMI/ACS Risk Factors: Reports: None TAD Risk Factors: Reports: None Pulmonary Embolism Risk Factors: Reports: Malignancy Prior Care for this Complaint: Yes Recent Stress Test: No JVD Present: No Subcutaneous Emphysema Present: No Diminshed Breath Sounds: Yes Reproducible Chest Wall Pain: No Bilateral Pulses Present: Yes Unequal Pulses Noted: No If Risk Factors for AMI/ACS Consider: EKG, Cardiac Enzymes Review of Systems - Review Of Systems Constitutional: Reports: Malaise, Weakness, Loss of appetite, Other Eyes: Reports: No symptoms Ears, Nose, Mouth, Throat: Reports: No symptoms Respiratory: Reports: Cough Cardiac: Reports: Chest pain, Palpitations, Other GI: Reports: Poor fluid intake : Reports: Other Musculoskeletal: Reports: Back pain, Other Skin: Reports: Bruising, Dryness, Other Neurological: Reports: Unable to move upper ext, Weakness, Other Endocrine: Reports: No symptoms Hematologic/Lymphatic: Reports: Anemia, Easy bruising All Other Systems: Reviewed and Negative Past Medical History - Past Medical History Previously Healthy: Yes Endocrine: Reports: None Cardiovascular: Reports: None Respiratory: Reports: None Hematological: Reports: None Gastrointestinal: Reports: None Genitourinary: Reports: None Neuro/Psych: Reports: None Musculoskeletal: Reports: None Cancer: Reports: None - Surgical History General Surgical History: Reports: None - Family History Family History: Reports: None - Social History Smoking Status: Current every day smoker, Light tobacco smoker Hx Substance Use: No Alcohol Screening: None - Immunizations Tetanus Shot up to Date: No Physical Exam - Physical Exam Appearance: Ill-appearing, Thin, Cachectic Ill-appearing: Moderate Pain Distress: Mild Eyes: BENNY, EOMI, Conjunctiva clear ENT: Ears normal, Nose normal, Oropharynx normal Neck: Supple Respiratory: Airway patent, Breath sounds diminished Cardiovascular: RRR, Pulses normal, Bradycardia GI/: Soft, Nontender, Bowel sounds hypoactive Musculoskeletal: No edema, Limited strength Skin: Warm, Dry Neurological: Sensation intact, Reflexes intact, Cranial nerves intact, Alert, Oriented Psychiatric: Affect appropriate Critical Care Note - Critical Care Note Total Time (mins): 0 Course - Course Hematology/Chemistry: 07/12/18 13:20 07/12/18 13:20 Orders, Labs, Meds: Lab Review 07/12/18 07/12/18 07/12/18 13:20 13:20 13:20 WBC 9.63 RBC 4.17 L Hgb 13.2 L Hct 38.6 L MCV 92.6 MCH 31.7 H MCHC 34.2 RDW Coeff of Lexa 13.3 Plt Count 193 Immature Gran % (Auto) 0.4 Neut % (Auto) 80.0 Lymph % (Auto) 11.2 [place] % (Auto) 7.1 Eos % (Auto) 0.9 Baso % (Auto) 0.4 Immature Gran # (Auto) 0.0 Neut # (Auto) 7.7 H Lymph # (Auto) 1.1 [place] # (Auto) 0.7 Eos # (Auto) 0.1 Baso # (Auto) 0.0 PT INR D-Dimer (Manual) > 24301.00 H Sodium 133.7 L Potassium 3.80 Chloride 101.2 Carbon Dioxide 23.3 Anion Gap 13.00 BUN 10.5 Creatinine 0.95 Estimated GFR (MDRD) 78.00 BUN/Creatinine Ratio 11.05 Glucose 153.5 H Calcium 8.99 Total Bilirubin 1.70 H AST 22.2 ALT 15.0 Alkaline Phosphatase 117.3 Troponin I < 0.012 NT-Pro-B Natriuret Pep Total Protein 7.13 Albumin 3.96 Globulin 3.17 Albumin/Globulin Ratio 1.24 07/12/18 07/12/18 13:20 13:20 WBC RBC Hgb Hct MCV MCH MCHC RDW Coeff of Lexa Plt Count Immature Gran % (Auto) Neut % (Auto) Lymph % (Auto) [place] % (Auto) Eos % (Auto) Baso % (Auto) Immature Gran # (Auto) Neut # (Auto) Lymph # (Auto) [place] # (Auto) Eos # (Auto) Baso # (Auto) PT 10.4 INR 1.04 D-Dimer (Manual) Sodium Potassium Chloride Carbon Dioxide Anion Gap BUN Creatinine Estimated GFR (MDRD) BUN/Creatinine Ratio Glucose Calcium Total Bilirubin AST ALT Alkaline Phosphatase Troponin I NT-Pro-B Natriuret Pep 183.000 H Total Protein Albumin Globulin Albumin/Globulin Ratio Orders Category Date Time Status EKG-(ED ONLY) Stat CARDIO 07/12/18 13:05 Completed Immobilize [ED IMMOBILIZATION] .ONCE EMERGENCY 07/12/18 15:05 Ordered BLOOD CULTURE (ED ONLY) Stat LAB 07/12/18 13:27 Received CBC W/ AUTO DIFF Stat LAB 07/12/18 13:20 Completed COMPREHENSIVE METABOLIC PANEL Stat LAB 07/12/18 13:20 Completed D-DIMER Stat LAB 07/12/18 13:20 Completed NT-PROBNP Stat LAB 07/12/18 13:20 Completed PT WITH INR Stat LAB 07/12/18 13:20 Completed TROPONIN I Stat LAB 07/12/18 13:20 Completed URINALYSIS C & S IF INDICATED Stat LAB 07/12/18 13:02 Uncollected CHEST, 1V AP ONLY Stat RADS 07/12/18 13:[address] ABDOMEN/PELVIS WO CONTRAST Stat RADS 07/12/18 13:[address] HEAD W/O CONTRAST Stat RADS 07/12/18 13:02 Completed ELBOW, RIGHT 2 VIEWS Stat RADS 07/12/18 13:47 Completed SHOULDER, RIGHT MIN 2V Stat RADS 07/12/18 13:47 Completed Vital Signs: Temp Pulse Resp BP Pulse Ox 07/12/18 12:39 96.5 F L 59 L 16 109/52 L 95 JAMAAL Risk Score JAMAAL Risk Score: Risk Score Odds of by 30D 0 0.1 (0.1-0.2) 1 0.3 (0.2-0.3) 2 0.4 (0.3-0.5) 3 0.7 (0.6-0.9) 4 1.2 (1.0-1.5) 5 2.2 (1.9-2.6) 6 3.0 (2.5-3.6) 7 4.8 (3.8-6.1) Departure - Departure Time of Disposition: 15:12 Disposition: HOME SELF-CARE Discharge Problem: Closed fracture of shoulder Instructions: Shoulder Abduction Pillow (DC) Condition: Fair Pt referred to PMD for follow-up: Yes (follow with orthopedic spec.,Sunday) IPMP verified?: No Additional Instructions: Norcp tab 5/325 1 tabn every 8 hours prn # 12. Allergies/Adverse Reactions: Allergies propoxyphene napsylate [From Darvocet-N 100] Adverse Reaction (Verified 09:42) Home Medications: Ambulatory Orders Multivitamin/Iron/Folic Acid [Multi-Day Plus Iron Tablet] 1 each PO DAILY Clopidogrel Bisulfate [Plavix] 75 mg PO DAILY 07/12/18 Disposition Discussed With: Patient, Family
--- NOTE | 2018-07-12 14:14 | DI ---
EXAM: Right shoulder two view HISTORY: Fall COMPARISON: None FINDINGS: Mildly displaced fracture of the humeral neck. No dislocation. Mild osteoarthritis acrom ioclavicular joint with joint space narrowing osteophyte formation. IMPERSSION: Fracture of the humeral neck
--- NOTE | 2018-07-12 14:18 | DI ---
EXAM: Right elbow two-view HISTORY: Fall COMPARISON: None FINDINGS: No fracture or dislocation. The alignment is normal. No joint effusion. 2 mm metallic dens ity in the superficial soft tissues of the antecubital fossa. Additional densities probably represent nonspecific calcifications. IMPRESSION: 1. No fracture or dislocation. 2. 2 mm metallic density in the superficial soft tissues of the antecubital fossa, likely foreign man dy. Recommend clinical correlation.
--- NOTE | 2018-07-12 14:20 | DI ---
EXAM: Chest one view HISTORY: Fall, weakness COMPARISON: 09/13/2079 TECHNIQUE: Single view of the chest was performed FINDINGS: The lungs are clear. There is no pleural effusion or pneumothorax. The heart is normal i n size. The mediastinal contour is unchanged, noting atherosclerosis. Median sternotomy wires. Fra cture of the right humeral neck. IMPRESSION: 1. No acute cardiopulmonary process. 2. Fracture right humeral neck.
--- NOTE | 2018-07-12 14:33 | CT ---
EXAM: CT BRAIN HISTORY: Fall, weakness TECHNIQUE: CT brain without intravenous contrast. 5-mm axial sections with Reformations. COMPARISON: 02/23/2013 FINDINGS: There is significant generalized atrophy. There is relatively severe periventricular and deep white matter low attenuation which although nonspecific is suggestive of chronic microvascular ischemic jackson nge. Areas of right supratentorial encephalomalacia suggesting old infarctions. There is a probable tiny chronic infarction in the jillian. Mild ventriculomegaly likely in large part likely compensatory to the atrophy and encephalomalacia. These findings are stable. Brain otherwise is unremarkable without evidence of hemorrhage or large vessel distribution recent is chemic infarction. There is no suggestion of acute hydrocephalus or subdural fluid collection. No m ass or mass effect. Cranium has no acute finding. Mastoid processes are aerated. The visualized paranasal sinuses revea l patchy areas of mucosal thickening. IMPRESSION: 1. Significant involutional and post-infarctive changes which appear grossly stable although within this complex setting small areas of acute ischemia would be difficult to completely exclude. Conside r correlation with MRI if indicated clinically.
--- NOTE | 2018-07-12 14:45 | CT ---
EXAM: CT abdomen pelvis without contrast HISTORY: Cancer, prostate, fall, weakness COMPARISON: None TECHNIQUE: CT abdomen pelvis performed without intravenous contrast. Coronal and sagittal reformatt ed images obtained. FINDINGS: Mild bibasilar atelectasis. Granulomas calcification in the right lung base. No free air . No acute abnormalities of the bones. Bilateral hip arthroplasty. Evaluation organ parenchyma gentile ited without contrast. Heart top normal in size. Trace pericardial fluid anteriorly. Liver unremar kable. There is a gallstone. Pancreas unremarkable. Granulomatous calcification in the spleen. Sp thomas otherwise unremarkable. 1.5 cm right adrenal nodule measuring 1 HU, consistent with adenoma. L eft adrenal gland unremarkable. Bilateral renal vascular calcifications. No small nephrolithiasis n ot excluded. Probable right renal cysts measure just greater than simple fluid attenuation, measurin g 4.7 cm and 1.9 cm. Circumferential bladder wall thickening. Bladder partially obscured secondary to streak artifact from hip arthroplasty. Prostate region obscured secondary to streak artifact from hip arthroplasty. Stomach unremarkable. No dilated loops small bowel. Appendix not visualized. Marked fecal retention in the rectum. Abdominal aortic bi iliac endovascular stent with aorta measur ing up to 4.1 x 3.7 cm. Right common iliac artery measures up to 2.7 cm and left common iliac artery measures up to 2.1 cm, distal to the region of stent. Additional more distal bilateral iliac and le ft femoral stents present. No lymphadenopathy or ascites identified. IMPRESSION: 1. No acute traumatic injury identified in the abdomen pelvis, noting limitations without contrast 2. Cholelithiasis. 3. Right adrenal adenoma. 4. Probable right renal cysts measures just greater than simple fluid attenuation. Recommend correl ation with ultrasound 5. Circumferential bladder wall thickening may relate to changes of chronic outlet obstruction or cy stitis. 6. Marked fecal retention in the rectum. 7. Stented aortic aneurysm measuring up to 4.1 x 3.7 cm. Right iliac artery aneurysm measures 2.7 cm and left common iliac artery aneurysm measures 2.1 cm.
== END 2018-07-12 15:30 | disposition home or self-care (01) ==
LOC: ED 12:32
DX: S42.201A Unspecified fracture of upper end of right humerus, initial encounter for closed fracture (principal); M54.9 Dorsalgia, unspecified; R53.1 Weakness; W19.XXXA Unspecified fall, initial encounter; R06.02 Shortness of breath; R07.9 Chest pain, unspecified; G89.29 Other chronic pain; R00.2 Palpitations; F17.210 Nicotine dependence, cigarettes, uncomplicated; Z79.899 Other long term (current) drug therapy; Z86.73 Personal history of transient ischemic attack (TIA), and cerebral infarction without residual deficits
CPT/HCPCS: 36415; 80053; 83880; 84484; 85025; 85379; 85610; 87040; 93005; 93010; 99283

== ENCOUNTER 2018-08-19 07:47 | Emergency (ER) ==
[2018-08-19 07:54] VITALS: BP 102/62; TEMP 98.7
[2018-08-19 08:02] VITALS: BMI 19.8
--- NOTE | 2018-08-19 08:10 | ED.PDOC ---
General ED Provider: Dr. YOU SEN Chief Complaint: Abscess Stated Complaint: 73 years old male with pm hx of extensive P.V.D. c/o of an abscess measuring 5 cm x3cm on the anterior aspect of the left sinha. Time Seen by Physician: 07:47 (seen with may see photos) Mode of Arrival: Wheelchair Information Source: Patient Exam Limitations: No limitations, Other (HAS CLOSED SHOULDER FRACTURE ) Primary Care Provider: BEATRIZ MCKINNEY Referred to ED by: Other (LAST BM 1 HR AGO, LAST MEAL LAST NIGHT) Nursing and Triage Documentation Reviewed and Agree: Yes Does patient meet sepsis criteria?: No System Inflammatory Response Syndrome: Not Applicable Sepsis Protocol: For patient's 13 years and over: Temp is 96.8 and below OR 101 and greater Pulse >90 BPM Resp >20/minute Acutely Altered Mental Status Are patient's symptoms suggestive of a new infection, such as: -Pneumonia -Skin, Soft Tissue -Endocarditis -UTI -Bone, Joint Infection -Implantable Device -Acute Abdominal Infection -Wound Infection -Meningitis -Blood Stream Catheter Infection -Unknown Skin Complaint Exam - Skin/Soft Tissue Complaint/Exam Onset/Duration: 1 WEEK Symptoms Are: Still present Timing: Constant Initial Severity: Moderate Current Severity: Moderate Character: Reports: Redness, Swelling, Raised, Painful Aggravating: Reports: Touch Alleviating: Reports: None Associated Signs and Symptoms: Reports: Tenderness. Denies: Fever, Chills, Itching, Drainage, Bruising, Red streaks, Joint swelling Related Surgical History: Reports: None Recent Exposure to Others w/Similar Symptoms: No Skin Findings: Present: Pustules Differential Diagnoses: Abscess, MRSA Review of Systems - Review Of Systems Constitutional: Reports: No symptoms Eyes: Reports: No symptoms Ears, Nose, Mouth, Throat: Reports: No symptoms Respiratory: Reports: No symptoms Cardiac: Reports: No symptoms GI: Reports: No symptoms : Reports: No symptoms Musculoskeletal: Reports: No symptoms Skin: Reports: Other (ABSCESS SEE PHOTOS) Neurological: Reports: No symptoms Endocrine: Reports: No symptoms Hematologic/Lymphatic: Reports: No symptoms All Other Systems: Reviewed and Negative Past Medical History - Past Medical History Previously Healthy: No Endocrine: Reports: Dyslipidemia, Other (CAROTID STENOSIS BILATERAL) Cardiovascular: Reports: CAD, Hypertension, Other (ABDOMINAL AORTIC ANEURYSM) Respiratory: Reports: COPD Hematological: Reports: Anemia Gastrointestinal: Reports: Unknown Genitourinary: Reports: Other (BLADDER WALL THICKENING AND STRESS URINARY INCONTINENCE/ HYPONATREMIA) Neuro/Psych: Reports: CVA, Anxiety Musculoskeletal: Reports: Arthritis, Joint Pain, Other (SHOULDER PAIN AND PRIOR FRACTURE ) Cancer: Reports: Other (PROSTATE CANCER ) Other Pertinent Past Medical History: WHEEL CHAIR BOUND/ FALL RISK DUE TO PRIOR CVA - Surgical History General Surgical History: Reports: CABG, Other (stents lower leg due to PVD ) - Family History Family History: Reports: None - Social History Smoking Status: Current every day smoker (USED TO SMOKE 3 PK/DAY NOW SMOKES 1 PK /DAY) Smoking Cessation Counseling Time: > 10 min Hx Substance Use: No Alcohol Screening: None Lives: With family ( ) Physical Exam - Physical Exam Appearance: Thin Eyes: BENNY, EOMI, Conjunctiva clear ENT: Ears normal, Nose normal, Oropharynx normal Respiratory: Breath sounds diminished, Rhonchi Cardiovascular: RRR, Pulses normal, No rub, No murmur GI/: Soft, Nontender, No masses, Bowel sounds normal, No Organomegaly Musculoskeletal: Normal strength, ROM intact, No edema, No calf tenderness Skin: Warm, Dry (ABSCESS NOTED ON THE LEFT SINHA 5X3 CM ) Neurological: Sensation intact, Motor intact, Reflexes intact, Cranial nerves intact, Alert, Oriented Psychiatric: Affect appropriate, Mood appropriate Physician Notification - Case Discussed Physician Notified: KIERRA Time of Notification: 08:25 (TRANSFER TO MED/SURG) Critical Care Note - Critical Care Note Total Time (mins): 0 Course - Course Vital Signs: Temp Pulse Resp BP Pulse Ox 08/19/18 07:47 98.7 F 71 20 102/62 97 Departure - Departure Time of Disposition: 08:25 Disposition: TSF SHORT-TRM HOSP Discharge Problem: Abscess Condition: Good Pt referred to PMD for follow-up: Yes IPMP verified?: No Additional Instructions: Please call your Family Physician as soon as possible to schedule a follow-up appointment. Allergies/Adverse Reactions: Allergies propoxyphene napsylate [From Darvocet-N 100] Adverse Reaction (Verified 07:56) Home Medications: Ambulatory Orders Multivitamin/Iron/Folic Acid [Multi-Day Plus Iron Tablet] 1 each PO DAILY Clopidogrel Bisulfate [Plavix] 75 mg PO DAILY 07/12/18
== END 2018-08-19 08:55 | disposition short-term general hospital (02) ==
LOC: ED 07:47
DX: L02.416 Cutaneous abscess of left lower limb (principal); I73.9 Peripheral vascular disease, unspecified; I10 Essential (primary) hypertension; E78.5 Hyperlipidemia, unspecified; I25.810 Atherosclerosis of coronary artery bypass graft(s) without angina pectoris; I65.23 Occlusion and stenosis of bilateral carotid arteries; F17.210 Nicotine dependence, cigarettes, uncomplicated; Z79.899 Other long term (current) drug therapy; Z86.73 Personal history of transient ischemic attack (TIA), and cerebral infarction without residual deficits; Z99.3 Dependence on wheelchair
CPT/HCPCS: 36415; 85025; 99285

== ENCOUNTER 2018-09-08 10:02 | Emergency (ER) | payer OTHER ==
[2018-09-08 10:05] VITALS: BMI 19.8
[2018-09-08 10:13] VITALS: BP 112/70; TEMP 99.5
--- NOTE | 2018-09-08 10:33 | ED.PDOC ---
General ED Provider: Dr. ALLA BARRIOS Chief Complaint: Weakness Stated Complaint: Weakness; legs not working - weak - had trouble getting off commode this AM; Additional pt c/o of groin pain per . X Ray ordered. states Dr. Llanes, Ortho had reduced R hip in past for patient and she believes he did the original surgery Time Seen by Physician: 10:10 Mode of Arrival: Wheelchair Information Source: Patient Exam Limitations: No limitations Primary Care Provider: JENNIFER REES Nursing and Triage Documentation Reviewed and Agree: Yes Does patient meet sepsis criteria?: No System Inflammatory Response Syndrome: Not Applicable Sepsis Protocol: For patient's 13 years and over: Temp is 96.8 and below OR 101 and greater Pulse >90 BPM Resp >20/minute Acutely Altered Mental Status Are patient's symptoms suggestive of a new infection, such as: -Pneumonia -Skin, Soft Tissue -Endocarditis -UTI -Bone, Joint Infection -Implantable Device -Acute Abdominal Infection -Wound Infection -Meningitis -Blood Stream Catheter Infection -Unknown Review of Systems - Review Of Systems Constitutional: Reports: Weakness Respiratory: Reports: No symptoms Cardiac: Reports: No symptoms Neurological: Reports: Weakness All Other Systems: Reviewed and Negative (All information reported by spouse; she states Dementia; patient is unable to answer or provide information to questions) Past Medical History - Past Medical History Previously Healthy: No Endocrine: Reports: Dyslipidemia, Other (CAROTID STENOSIS BILATERAL) Cardiovascular: Reports: CAD, Hypertension, Other (ABDOMINAL AORTIC ANEURYSM) Respiratory: Reports: COPD Hematological: Reports: Anemia Gastrointestinal: Reports: Unknown Genitourinary: Reports: Other (BLADDER WALL THICKENING AND STRESS URINARY INCONTINENCE/ HYPONATREMIA) Neuro/Psych: Reports: CVA, Anxiety Musculoskeletal: Reports: Arthritis, Joint Pain, Other (SHOULDER PAIN AND PRIOR FRACTURE ) Cancer: Reports: Other (PROSTATE CANCER ) Other Pertinent Past Medical History: WHEEL CHAIR BOUND/ FALL RISK DUE TO PRIOR CVA - Surgical History General Surgical History: Reports: CABG, Other (stents lower leg due to PVD ) - Family History Family History: Reports: None - Social History Smoking Status: Current every day smoker, Heavy tobacco smoker Hx Substance Use: No Alcohol Screening: None Physical Exam - Physical Exam Appearance: Ill-appearing Ill-appearing: Mild Pain Distress: None Eyes: BENNY Neck: Supple Respiratory: Airway patent, Breath sounds clear, Breath sounds equal, Respirations nonlabored Cardiovascular: RRR, Pulses normal GI/: Soft, Nontender, Bowel sounds normal Musculoskeletal: Normal strength, ROM intact, No edema Skin: Warm, Dry, Normal color Neurological: Motor intact Psychiatric: Affect appropriate (Consistent with Dementia; no apparent distress associated with affect) Interpretation - Radiology Interpretation Radiology Interpretation By: ED Physician (SDuperior dislocation of femoral stem (prosthesis); no fracture) Radiology Results: Positive (Prosthesis dislocation R hip) Exam Interpreted: Other (R hip dislocation ) - Hot Dip Plater Rate: Normal Rhythm: Sinus Ectopy: None - EKG Interpretation Time of EKG #1: 10:30 Rate: Normal Rhythm: Sinus Ectopy: None Stanton: NL Interpretation: RBBB Physician Notification - Case Discussed Physician Notified: Dr. Llanes/Belle Time of Notification: 13:50 (Send pt to ER ([facility])) Critical Care Note - Critical Care Note Total Time (mins): 35 Course - Course Hematology/Chemistry: 09/08/18 10:15 09/08/18 10:15 Orders, Labs, Meds: Lab Review 09/08/18 09/08/18 10:15 10:15 WBC 9.05 RBC 4.07 L Hgb 12.6 L Hct 37.6 L MCV 92.4 MCH 31.0 MCHC 33.5 RDW Coeff of Lexa 13.8 Plt Count 252 Immature Gran % (Auto) 0.2 Neut % (Auto) 78.9 Lymph % (Auto) 9.1 L [place] % (Auto) 11.3 H Eos % (Auto) 0.2 Baso % (Auto) 0.3 Immature Gran # (Auto) 0.0 Neut # (Auto) 7.1 H Lymph # (Auto) 0.8 Cecil # (Auto) 1.0 Eos # (Auto) 0.0 Baso # (Auto) 0.0 Sodium 136.0 Potassium 3.90 Chloride 101.0 Carbon Dioxide 23.0 Anion Gap 15.90 BUN 8.0 L Creatinine 0.60 Estimated GFR (MDRD) 132.00 BUN/Creatinine Ratio 13.33 Glucose 138.0 H Calcium 9.00 Total Bilirubin 1.50 H AST 46.0 ALT 24.0 Alkaline Phosphatase 133.0 H Troponin I < 0.012 Total Protein 7.90 Albumin 3.90 Globulin 4.00 Albumin/Globulin Ratio 0.97 Orders Category Date Time Status EKG-(ED ONLY) Stat CARDIO 09/08/18 10:21 Completed CBC W/ AUTO DIFF Stat LAB 09/08/18 10:15 Completed COMPREHENSIVE METABOLIC PANEL Stat LAB 09/08/18 10:15 Completed TROPONIN I Stat LAB 09/08/18 10:15 Completed URINALYSIS C & S IF INDICATED Stat LAB 09/08/18 11:56 Uncollected CHEST, 1V AP ONLY Stat RADS 09/08/18 10:[address] HEAD W/O CONTRAST Stat RADS 09/08/18 10:25 Completed HIP, RIGHT 2 VIEWS Stat RADS 09/08/18 11:55 Completed Vital Signs: Temp Pulse Resp BP Pulse Ox 09/08/18 10:05 99.5 F 103 H 20 112/70 97 Departure - Departure Time of Disposition: 14:03 Disposition: TSF SHORT-TRM HOSP Discharge Problem: Weakness Recurrent dislocation of hip joint prosthesis Qualifiers: Encounter type: initial encounter Qualified Code(s): T84.029A - Dislocation of unspecified internal joint prosthesis, initial encounter; Z96.649 - Presence of unspecified artificial hip joint Discharge Problem: (Ruled Out): Recurrent dislocation of hip Instructions: Weakness (ED), Hip Dislocation (ED) Condition: Stable Pt referred to PMD for follow-up: Yes (Keep appointment with PCP) IPMP verified?: No (Not indicated) Additional Instructions: Resume/continue usual medications and plan; follow up with primary care provider as planned. Follow instructions from Ortho after hip dislocation reduction. Allergies/Adverse Reactions: Allergies propoxyphene napsylate [From Darvocet-N 100] Adverse Reaction (Verified 10:12) propoxyphene napsylate Adverse Reaction (Uncoded 02/23/13 12:58) Home Medications: Ambulatory Orders Multivitamin/Iron/Folic Acid [Multi-Day Plus Iron Tablet] 1 each PO DAILY Acetaminophen 650 mg PO Q4HR PRN 09/03/18 Bethanechol Chloride 25 mg PO TID 09/03/18 Bisacodyl 10 mg RC EVERY OTHER DAY PRN 09/03/18 Clopidogrel Bisulfate [Plavix] 75 mg PO DIRECTED 09/03/18 Docusate Sodium 100 mg PO BID 09/03/18 Finasteride 5 mg PO DAILY 09/03/18 Lorazepam 0.5 mg PO TID 09/03/18 Magnesium Hydroxide [Milk Of Magnesia] 30 ml PO EVERY OTHER DAY PRN 09/03/18 Metoprolol Tartrate 12.5 mg PO BID 09/03/18 Nicotine [Nicoderm Cq] 1 each TD DAILY 09/03/18 Transfer Form Completed: Yes Disposition Discussed With: Family ()
--- NOTE | 2018-09-08 11:06 | CT ---
EXAM: CT head without contrast CLINICAL HISTORY: Weakness TECHNIQUE: Multiple axial images were obtained through the brain without contrast. Sagittal and cor onal reformats were obtained. FINDINGS: Comparison is made to an exam dated 07/12/2018. Prominent ventricles, cerebral sulci, and c erebellar folia indicate atrophy. Periventricular leukoariosis is seen. Mild encephalomalacia is see n in the right parietal region. No mass, mass effect, shift of the midline, evidence of acute stroke , or extra-axial fluid or blood collections are seen. The visualized paranasal sinuses are well-aera yue. The mastoid air cells are clear. The bony calvarium is intact. IMPRESSION: No acute intracranial process Atrophy Small vessel disease Encephalomalacia of the right parietal region
--- NOTE | 2018-09-08 12:02 | DI ---
EXAM: Portable AP view of the chest dated 09/08/2018 CLINICAL HISTORY: Weakness FINDINGS: Comparison is made to an exam dated 07/12/2018. The heart size and mediastinal contours are unchanged. The aorta is atherosclerotic. No masses, inf iltrates, or effusions are seen. A median sternotomy has been performed. No pneumothorax is seen. IMPRESSION: Postoperative chest Atherosclerotic aorta
--- NOTE | 2018-09-08 13:39 | DI ---
EXAM: Two views of the right hip HISTORY: Hip pain TECHNIQUE: AP lateral views of the right hip were obtained. FINDINGS: The patient has had previous total right hip arthroplasty. There appears to be superior d islocation of the femoral stem with respect to the acetabular cup. No obvious acute fractures are se en. IMPRESSION: Acute superior dislocation of the right hip joint.
== END 2018-09-08 14:08 | disposition short-term general hospital (02) ==
LOC: ED 10:02
DX: T84.020A Dislocation of internal right hip prosthesis, initial encounter (principal); R53.1 Weakness; E78.5 Hyperlipidemia, unspecified; I10 Essential (primary) hypertension; D64.9 Anemia, unspecified; I25.810 Atherosclerosis of coronary artery bypass graft(s) without angina pectoris; Z79.899 Other long term (current) drug therapy; Z86.73 Personal history of transient ischemic attack (TIA), and cerebral infarction without residual deficits; F17.210 Nicotine dependence, cigarettes, uncomplicated; Z86.79 Personal history of other diseases of the circulatory system; Z85.46 Personal history of malignant neoplasm of prostate; Z99.3 Dependence on wheelchair
CPT/HCPCS: 36415; 80053; 84484; 85025; 93005; 93010; 99285

== ENCOUNTER 2018-10-09 18:22 | Outpatient (CLI) | END 2018-10-09 18:42 | disposition short-term general hospital (02) | LOC: AMBL 18:22 | PROVIDERS: ATTEND Internal Medicine | DX: M79.604 Pain in right leg (principal); T81.31XA Disruption of external operation (surgical) wound, not elsewhere classified, initial encounter; Z98.890 Other specified postprocedural states; Z96.641 Presence of right artificial hip joint; Z91.14 Patient's other noncompliance with medication regimen ==

== ENCOUNTER 2018-10-10 17:24 | Outpatient (CLI) | payer OTHER | END 2018-10-10 17:25 | disposition home or self-care (01) | LOC: NONPT 17:24 | PROVIDERS: ATTEND General Practice | DX: A49.02 Methicillin resistant Staphylococcus aureus infection, unspecified site (principal) | CPT/HCPCS: 80202; 82565; 84520 ==

== ENCOUNTER 2018-10-15 13:49 | Outpatient (CLI) | payer OTHER | END 2018-10-15 13:50 | disposition home or self-care (01) | LOC: NONPT 13:49 | PROVIDERS: ATTEND General Practice | DX: R97.20 Elevated prostate specific antigen [PSA] (principal) | CPT/HCPCS: 84153 ==

== ENCOUNTER 2018-10-16 10:36 | Outpatient (CLI) | payer OTHER | END 2018-10-16 10:37 | disposition home or self-care (01) | LOC: NONPT 10:36 | PROVIDERS: ATTEND General Practice | DX: B95.62 Methicillin resistant Staphylococcus aureus infection as the cause of diseases classified elsewhere (principal) | CPT/HCPCS: 80048; 80202 ==

== ENCOUNTER 2018-10-17 11:57 | Outpatient (CLI) | payer OTHER | END 2018-10-17 11:58 | disposition home or self-care (01) | LOC: NONPT 11:57 | PROVIDERS: ATTEND General Practice | DX: B95.62 Methicillin resistant Staphylococcus aureus infection as the cause of diseases classified elsewhere (principal) | CPT/HCPCS: 80048; 80202 ==

== ENCOUNTER 2018-10-19 08:31 | Outpatient (CLI) | END 2018-10-19 08:32 | disposition home or self-care (01) | LOC: NONPT 08:31 | PROVIDERS: ATTEND General Practice | DX: B95.62 Methicillin resistant Staphylococcus aureus infection as the cause of diseases classified elsewhere (principal); Z51.81 Encounter for therapeutic drug level monitoring | CPT/HCPCS: 80202 ==

== ENCOUNTER 2018-10-21 13:50 | Outpatient (CLI) | END 2018-10-21 13:51 | disposition home or self-care (01) | LOC: NONPT 13:50 | PROVIDERS: ATTEND General Practice | DX: F41.1 Generalized anxiety disorder (principal); I10 Essential (primary) hypertension; E78.5 Hyperlipidemia, unspecified | CPT/HCPCS: 80048 ==